=== PATIENT | female | born 1970 | race Caucasian/White ===

== ENCOUNTER 2018-06-21 07:46 | Day surgery (SDC) | payer OTHER ==
[2018-06-20 08:20] VITALS: BMI 27.3
[2018-06-21] MEDS ORDERED: ePHEDrine SULFATE 50 MG/1 ML AMPULE ONE (08:17)
[2018-06-21] MEDS ORDERED: ROCURONIUM BROMIDE 50 MG/5 ML VIAL ONE (08:18)
[2018-06-21] MEDS ORDERED: MIDAZOLAM HCL 2 MG/2 ML SINGLE DOSE VIAL ONE (08:18)
[2018-06-21] MEDS ORDERED: PROPOFOL 20 ML ONE ×2 (08:18)
[2018-06-21] MEDS ORDERED: SUCCINYLCHOLINE CHLORIDE 200 MG/10 ML VIAL ONE ×4 (08:18)
[2018-06-21] MEDS ORDERED: BUPIVACAINE HCL/PF 0.5% (5MG/ML) 10 ML VIAL ONE (08:48)
[2018-06-21] MEDS ORDERED: NEOSTIGMINE METHYLSULFATE 0.5 MG/1 ML - 10 ML MDV ONE (09:51)
[2018-06-21] MEDS ORDERED: BUPIVACAINE HCL/PF (5 MG/ML) 30 ML VIAL IJ ONE (10:08)
[2018-06-21] MEDS ORDERED: ONDANSETRON 4 MG/2 ML VIAL IVPUSH PRN ×2 (10:43→10:45)
[2018-06-21] MEDS ORDERED: oxyCODONE HCL 5 MG TABLET PO PRN ×2 (10:43→10:45)
--- NOTE | 2018-06-21 10:44 | HP ---
History & Physical Update - Physical Physical: No Change - Assessment Assessment: No Change - Plan Plan: No Change (H&P reviwed , no changes . for laparoscopy LT salpingectomy, all necessary procedure)
[2018-06-21] MEDS ORDERED: IBUPROFEN 800 MG/8 ML IJ IVPB PRN (10:45)
[2018-06-21] MEDS ORDERED: IBUPROFEN 600 MG TABLET (FP) PO PRN (10:45)
[2018-06-21] MEDS ORDERED: ELECTROLYTE-148 SOLN 1,000 ML IV SCH (10:45)
[2018-06-21] MEDS ORDERED: LACTATED RINGERS SOLUTION 1,000 ML IV SCH (10:45)
[2018-06-21 12:09] VITALS: TEMP 97.5
[2018-06-21] MEDS ORDERED: ONDANSETRON 4 MG/2 ML VIAL IVPB ONE (14:30)
[2018-06-21] MEDS ORDERED: ONDANSETRON 4 MG/2 ML VIAL ONE (14:30)
[2018-06-21 16:52] VITALS: BP 122/84; PULSE 96
--- NOTE | 2018-06-22 11:11 | OP ---
DATE OF OPERATION: 06/21/2018 PREOPERATIVE DIAGNOSIS: Left lower quadrant pain, rule out hydrosalpinx. POSTOPERATIVE DIAGNOSES: 1. Left lower quadrant pain, rule out hydrosalpinx. 2. Chronic pelvic inflammatory disease. 3. Pelvic adhesions. PROCEDURE: Laparoscopy, lysis of pelvic adhesions, and left salpingectomy. SURGEON: Sagar Martínez MD RACK CLEANER: Layla Long MD ANESTHESIA: General. ESTIMATED BLOOD LOSS: 50 mL. OPERATIVE PROCEDURE: The patient was taken to the operating room and adequate general anesthesia induced. In the lithotomy position, evaluation under anesthesia revealed external genitalia to be normal. Vagina was normal. Cervix was clean, no gross lesion. Uterus was normal size. Adnexa, no masses were palpable. Then, with the weighted speculum in the vagina, anterior lip of cervix was grasped with a single-toothed tenaculum. Hulka was introduced into the uterine cavity for manipulation then Monet was inserted, and patient was placed in dorsal lithotomy position for pelviscopy. A small infraumbilical incision was made. Veress needle was introduced. Pneumoperitoneum was established. A 5-mm trocar was inserted through the umbilical area under direct vision, and then scope was introduced. Then again, under direct vision, two 5-mm trocars, one on the right hypogastric area and the other one in the left hypogastric area, was introduced without any difficulty. Upper abdomen was checked and was normal. There was a pelvic area. There was a sigmoid colon adherent to the posterior cul-de-sac and posterior wall of the uterus. Also, the colon was adherent to the left pelvic sidewall covering the left tube. The ovary was underneath the bowel adhesions. The right tube and ovary appeared to be normal. Then, meticulously these bowel adhesions were released from the posterior cul-de-sac and the posterior wall of the uterus also with Endoshears with sharp and blunt dissection meticulously these adhesions again were lysed from the pelvic sidewall, and the bowel were released then the tube was exposed. The left tube appeared to be swollen and enlarged consistent with hydrosalpinx. So, at this time, the fimbriated end of the tube was buried under the pelvic sidewall. The adhesions were lysed, and the fimbria was released, and then mesosalpinx was cauterized with Bipolar cautery along the mesosalpinx, and the left tube was removed. There was a slight amount of bleeding at the site of the procedure which was cauterized with bipolar cautery. Hemostasis was established. Pelvic cavity was irrigated several times, and no active bleeding was seen. The left and the right ovary were normal. Surgicel was placed over the surgical site. Hemostasis was complete. Abdomen was emptied of all the gases. Port incisions were closed with interrupted sutures of 3-0 Vicryl and skin was closed with Dermabond glue. The patient tolerated the procedure well, left the OR in good condition. Braden [id number]
--- NOTE | 2018-06-22 16:43 | PATH ---
Surgical Pathology Report Patient Name: BLAIR ORANTES [facility]. Rec. #: [id number] /Age/Gender: 1970 (Age: 47) / F Account: [id number] Location: [facility] SUR[facility]ICAL Taken: 06/21/2018 Received: 06/21/2018 Reported: 06/22/2018 Physicians: Sagar Martínez M.D. Specimen(s) Received PORTION OF LEFT FALLOPIAN TUBE Clinical History Pelvic and perineal pain Final Diagnosis PORTION OF FALLOPIAN TUBE, LEFT, LAPAROSCOPIC SALPINGECTOMY: FIMBRIATED END OF FALLOPIAN TUBE WITH DILATED LUMEN CONSISTENT WITH HYDROSALPINX, DENSE FIBROUS ADHESIONS, AND ADHERENT SMALL PORTION OF OVARIAN TISSUE. Electronically Signed Harini Thapa M.D. Gross Description Received in formalin labeled "portion of left fallopian tube," is a 3 cm in length fimbriated fallopian tube. The outer surface is huertas-pink and show focal adhesions. Sectioning reveals an unremarkable lumen. [employer] sections are submitted in one cassette. /06/21/2018 [facility]06/21/2018
== END 2018-06-21 16:30 | disposition home or self-care (01) ==
LOC: JASU-SURG 07:46
PROVIDERS: ATTEND Obstetrics & Gynecology
PROC: 0DNW4ZZ Release Peritoneum, Percutaneous Endoscopic Approach (ICD-10-PCS; 2018-06-21)
PROC: 0UB64ZZ Excision of Left Fallopian Tube, Percutaneous Endoscopic Approach (ICD-10-PCS; principal; 2018-06-21 09:00)
DX: N73.1 Chronic parametritis and pelvic cellulitis (principal); N70.11 Chronic salpingitis; N73.6 Female pelvic peritoneal adhesions (postinfective)
CPT/HCPCS: 84703; 88305-TC; 94760

== ENCOUNTER 2020-05-31 07:42 | Day surgery (SDC) | payer OTHER ==
[2020-05-23 11:53] VITALS: BMI 27.3
[2020-05-31] MEDS ORDERED: BUPIVACAINE HCL/PF 2.5 MG/ML - 30 ML VIAL IJ ONE (10:04)
[2020-05-31] MEDS ORDERED: MIDAZOLAM HCL 2 MG/2 ML SINGLE DOSE VIAL ONE (10:07)
[2020-05-31] MEDS ORDERED: PROPOFOL 20 ML ONE (10:07)
[2020-05-31] MEDS ORDERED: ceFAZolin SODIUM 1 GM VIAL ONE (10:09)
[2020-05-31] MEDS ORDERED: ACETAMINOPHEN 325 MG TABLET (FP) PO PRN (10:14)
[2020-05-31] MEDS ORDERED: oxyCODONE HCL 5 MG TABLET PO PRN (10:14)
[2020-05-31] MEDS ORDERED: ONDANSETRON 4 MG/2 ML VIAL IVPUSH PRN (10:14)
[2020-05-31] MEDS ORDERED: PROMETHAZINE HCL 25 MG/1 ML VIAL IVPUSH PRN (10:14)
[2020-05-31] MEDS ORDERED: LACTATED RINGERS SOLUTION 1,000 ML IV SCH (10:15)
[2020-05-31] MEDS ORDERED: DEXAMETHASONE SOD PHOSPHATE 4 MG/1 ML VIAL ONE (10:35)
[2020-05-31] MEDS ORDERED: KETOROLAC TROMETHAMINE 30 MG/1 ML VIAL ONE (10:35)
[2020-05-31] MEDS ORDERED: BUPIVACAINE HCL/PF 0.25% (2.5MG/ML) 10 ML VIAL IJ ONE (10:48)
[2020-05-31] MEDS ORDERED: ONDANSETRON 4 MG/2 ML VIAL ONE (11:29)
[2020-05-31] MEDS ORDERED: PROMETHAZINE HCL 25 MG/1 ML VIAL ONE (13:12)
[2020-05-31 13:37] VITALS: TEMP 98.7
[2020-05-31 14:01] VITALS: BP 127/69; PULSE 92
== END 2020-05-31 14:15 | disposition home or self-care (01) ==
LOC: FASU 07:42
PROVIDERS: ATTEND Orthopaedic Surgery
PROC: 0SBD4ZZ Excision of Left Knee Joint, Percutaneous Endoscopic Approach (ICD-10-PCS; 2020-05-31)
PROC: 0SBD4ZZ Excision of Left Knee Joint, Percutaneous Endoscopic Approach (ICD-10-PCS; 2020-05-31)
PROC: 0SBD4ZZ Excision of Left Knee Joint, Percutaneous Endoscopic Approach (ICD-10-PCS; principal; 2020-05-31 09:30)
DX: S83.242A Other tear of medial meniscus, current injury, left knee, initial encounter (principal); S83.282A Other tear of lateral meniscus, current injury, left knee, initial encounter; M65.862 Other synovitis and tenosynovitis, left lower leg; S83.8X2A Sprain of other specified parts of left knee, initial encounter; X58.XXXA Exposure to other specified factors, initial encounter; Y92.9 Unspecified place or not applicable; Y93.9 Activity, unspecified
CPT/HCPCS: 84703; 88304-TC; 94760